=== PATIENT | female | born 1985 | race Caucasian/White ===

== ENCOUNTER 2022-06-21 15:49 | Emergency (ER) | payer OTHER, SELFPAY ==
--- NOTE | ~2022-06-21 | US_ITS ---
EXAMINATION: US venous doppler [facility] DATE: 06/21/2022 16:24 INDICATION: Left lower limb pain and swelling. TECHNIQUE: Grayscale ultrasound images without and with compression and Doppler ultrasound images of the left lower extremity veins were obtained. COMPARISON: None. FINDINGS: The visualized portions of left common femoral vein, profunda (deep) femoral vein, femoral vein, popl iteal vein, peroneal veins, posterior tibial veins, and greater saphenous vein outflow are patent. IMPRESSION: 1. No deep venous thrombosis. Reviewed, dictated and finalized at location A. X DEVELOPER
[2022-06-21 15:55] VITALS: BP 138/96; PULSE 82; RESP 16; TEMP 36.4; O2SAT 97
--- NOTE | 2022-06-21 17:34 | ED.LOWEXIN ---
HPI - Extremity Injury (Lower) General Chief Complaint: Extremity Injury, Lower Stated Complaint: left leg injury Time Seen by Provider: 06/21/22 17:05 Source: patient Mode of arrival: ambulatory Limitations: no limitations History of Present Illness HPI Narrative: Patient is a 37 y/o female who presents to the ED with c/o left calf pain. Patient reports she was in a kickboxing class last night and jump roping when she felt and heard a pop in her left calf. She had pain and swelling afterwards. She has been able to ambulate today, but has pain with this. Pain worse with ROM of ankle, reproducing pain in her left calf. She denies significant ankle or knee pain. She only has been taking ibuprofen for relief. Denies numbness, tingling. Related Data Home Medications Medication Instructions Recorded Confirmed methotrexate sodium 15 mg tablet 15 mg PO WEEKLY 06/21/22 venlafaxine 37.5 mg 37.5 mg PO QPM 06/21/22 capsule,extended release 24 hr (Effexor XR) Allergies Allergy/AdvReac Type Severity Reaction Status Date / Time No Known Allergies Allergy Verified 06/21/22 17:04 Review of Systems Review of Systems: CONSTITUTIONAL: Denies fever, chills, or sweats. MUSCULOSKELETAL: See HPI. NEUROLOGIC: Denies tingling, numbness, or weakness. All systems reviewed & are unremarkable except as noted in HPI and below PMFSH Past Medical History Medical History No pertinent past medical history Surgical History Surgical History (Updated 06/21/22 @ 18:23 by Caroline Brewer PA-C) No pertinent past surgical history Social History Social History (Updated 06/21/22 @ 21:12 by Caroline Brewer PA-C) Smoking status: Never smoker Exam Narrative: GENERAL: Well appearing, obese, non-toxic, in no acute distress. HEAD: Normocephalic, atraumatic. NECK: Supple. No adenopathy, no masses. RESPIRATORY: Airway patent, respirations nonlabored. CARDIOVASCULAR: Regular rate and rhythm without murmurs, rubs, or gallops. Pedal pulses 2+ and equal bilaterally. MUSCULOSKELETAL: Limited plantar and dorsiflexion of left ankle due to pain in left calf. Moderate tenderness to palpation in left posterior upper calf. Diffuse taut swelling of left calf, though compartments still soft. Sensation intact. Good capillary refill. No ecchymosis. No significant tenderness or swelling along Achilles tendon, medial/lateral malleoli. SKIN: Warm, dry, normal color. No rashes. NEURO: A&O X3. Speech clear. Cranial nerves II-XII grossly intact. No ataxic movements. PSYCHIATRIC: Appropriate mood and affect. Normal interaction. Course Vital Signs Vital signs: Vital Signs Temperature 97.6 F 06/21/22 15:55 Pulse Rate 82 06/21/22 15:55 Respiratory Rate 16 06/21/22 15:55 Blood Pressure 138/96 H 06/21/22 15:55 Pulse Oximetry 97 06/21/22 15:55 Temperature 97.6 F 06/21/22 15:55 Pulse Rate 82 06/21/22 15:55 Respiratory Rate 16 06/21/22 15:55 Blood Pressure 138/96 H 06/21/22 15:55 Pulse Oximetry 97 06/21/22 15:55 MDM - Extremity Injury (Lower) MDM Narrative Medical decision making narrative: Patient's injury is consistent with musculoskeletal etiology. No signs of neurologic or vascular compromise on physical examination. Good pedal pulses. Patient w/ limited dorsiflexion d/t pain in posterior calf, no significant tenderness along lower calf, Achilles, heel, or foot, doubt Achilles rupture. Diffuse swelling to L upper calf, but compartments are soft without signs of compartment syndrome. Venous Doppler ultrasound negative for DVT. Pain is consistent with exam and injury. Discussed likelihood of gastrocnemius muscle or tendon strain. Patient is felt to be stable for discharge home and further outpatient management and treatment. Patient given Domingo bandage in the ED as well as crutches. Will provide orthopedic information for follow-up should
[2022-06-21] MEDS: NAPROXEN 250 MG TABLET 500 MG PO (18:19)
== END 2022-06-21 18:35 | disposition home or self-care (01) ==
PROVIDERS: Emergency Provider Physician Assistant
DX: S86.912A Strain of unspecified muscle(s) and tendon(s) at lower leg level, left leg, initial encounter (principal); X50.0XXA Overexertion from strenuous movement or load, initial encounter; Y93.75 Activity, martial arts
CPT/HCPCS: 93971; 99284; A9270

== ENCOUNTER 2023-03-29 17:06 | Emergency (ER) | payer OTHER, SELFPAY ==
--- NOTE | ~2023-03-29 | XR_ITS ---
EXAMINATION: XR chest 2V DATE: 03/29/2023 17:39 INDICATION: Chest pressure TECHNIQUE: Frontal and lateral views of the chest are obtained COMPARISON: 03/22/2022 FINDINGS: The lungs are free of acute opacities. No pleural effusion or pneumothorax. The cardiomedia stinal silhouette is normal. There is mild thoracic spondylosis. Surgical clips in the right upper qu adrant are likely from prior cholecystectomy. IMPRESSION: 1. No acute cardiopulmonary abnormality. Reviewed, dictated and finalized at location F.
--- NOTE | 2023-03-29 17:07 | ECG_ITS ---
Measurements Intervals [place] Rate: 73 P: 40 OK: 171 QRS: 3 QRSD: 95 T: 19 QT: 387 QTc: 428 Interpretive Statements SINUS RHYTHM LOW QRS VOLTAGE IN PRECORDIAL LEADS [QRS DEFLECTION < 1.0 mV IN CHEST LEADS] POSSIBLE ANTERIOR MYOCARDIAL INFARCTION , PROBABLY OLD [30 ms Q WAVE IN V3/V4, OR R < 0.2 mV IN V4] NO PREVIOUS ECG AVAILABLE FOR COMPARISON Electronically Signed On 03-29-2023 19:54:06 CDT by Tracey Landa M.D.
[2023-03-29 17:14] VITALS: BP 129/96; PULSE 74; RESP 16; TEMP 36.4; O2SAT 100
[2023-03-29 17:27] VITALS: BP 125/95; PULSE 81; RESP 15; O2SAT 100
[2023-03-29 17:31] VITALS: BP 116/91; PULSE 80; RESP 20; O2SAT 100
[2023-03-29 17:37] LABS: Basophils Absolute Auto 0.1 K/mm3 (0.0-0.1); Basophils Percent Auto 0.7 % (0.2-1.2); Eosinophils Absolute Auto 0.1 K/mm3 (0-0.3); Eosinophils Percent Auto 1.3 % (0-4.4); Hematocrit 45.3 % (37.0-47.0); Immature Granulocyte Absolute 0.02 K/mm3 (0.00-0.031); Immature Granulocyte Percent A 0.2 % (0-0.5); Lymphocytes Absolute Auto 1.71 K/mm3 (0.9-3.2); Lymphocytes Percent Auto 20.2 % (18.3-44.2); Mean Corpuscular HGB Conc 33.1 g/dl (32-36); Mean Corpuscular Hemoglobin 29.6 pg (26-34); Mean Corpuscular Volume 89.3 fl (80-100); Mean Platelet Volume 9.6 fl (7.4-10.4); Monocytes Absolute Auto 0.5 K/mm3 (0.1-0.6); Neutrophils Percent Auto 71.6 % (45.5-73.1); Platelet Count Result 441 k/mm3 (150-375); Red Blood Count 5.07 M/mm3 (4.2-5.4); Red Cell Distribution Width 13.5 % (11.5-14.5); White Blood Count 8.5 K/mm3 (4.5-10.0)
[2023-03-29 17:50] LABS: Partial Thromboplastin Time 26.9 SECONDS (22.3-36.8); Prothrombin Time 13.3 Seconds (11.1-14.7)
[2023-03-29 18:19] LABS: Alanine Aminotransferase 22 U/L (6-35); Albumin Level 4.2 g/dL (3.5-5.1); Alkaline Phosphatase 86 U/L (38-126); Anion Gap 7 mmol/L (8-16); Aspartate Amino Transferase 24 U/L (14-36); Bilirubin,Total 0.5 mg/dL (0.2-1.3); Blood Urea Nitrogen 13 mg/dL (7-17); Calcium 8.9 mg/dL (8.4-10.2); Carbon Dioxide 26 mmol/L (22-30); Chloride 101 mmol/L (98-107); Estimated CRCL calculation 91 ml/min; Estimated Glomerular Filt Rate > 60; Glucose 95 mg/dL (65-110); Lipase 80 U/L (23-300); Potassium 3.2 mmol/L (3.4-5.0); Sodium 134 mmol/L (137-145)
--- NOTE | 2023-03-29 18:19 | ED.CHESTPAIN ---
HPI - Chest Pain General Chief Complaint: Chest Pain <Tarah Tinoco PA-C - Last Filed: 03/29/23 21:50> Stated Complaint: chest pressure <Tarah Tinoco PA-C - Last Filed: 03/29/23 21:50> Time Seen by Provider: 03/29/23 18:05 <Tarah Tinoco PA-C - Last Filed: 03/29/23 21:50> History of Present Illness HPI narrative: 37-year-old female, LMP 03/20/2023, reports for evaluation for lightheadedness and chest discomfort that occurred approximately 1 hour prior to arrival. Patient states before the onset of symptoms, she was unloading her groceries and then went to sit on the couch. While she was in on the couch, she began feeling a fluttering and pressure in her anterior chest wall and began to feel lightheaded and dizzy. States she texted her boyfriend who is upstairs and came downstairs to check on her. At the time she took her vitals and her blood pressure was normal and heart rate was in the 60s. She then said that she could not catch her breath and felt panic with associated nausea. She her vitals and her blood pressure was 205/125 and heart rate was in the 30s. She began to feel diaphoretic and lightheaded. Her boyfriend then brought her to the ED. She states her symptoms lasted for approximately 15 minutes. She is is still having the chest fluttering and pressure. She does states she feels dizzy with position changes which is not abnormal for her. She reports drinking 2 cups of caffeine daily, no drug use. She drinks alcohol socially. She states she has had episodes of panic at night which coincides with similar symptoms, however she has not checked her vitals during these times. She has never been evaluated by windows systems admin, she has never worn a Holter monitor. Denies syncope but states she felt close to it prior to arrival. Denies lower extremity edema, calf pain, history of VTE, history of cancer, hemoptysis, cough or congestion, fever, vomiting or diarrhea, abdominal pain. <Tarah Tinoco PA-C - Last Filed: 03/29/23 21:50> Related Data Home Medications: Home Medications Medication Instructions Recorded Confirmed bupropion HCl 300 mg 24 hr tablet, 300 mg PO QAM 04/06/23 04/06/23 extended release (Wellbutrin XL) <Tarah Tinoco PA-C - Last Filed: 03/29/23 21:50> Allergies/Adverse Reactions: Allergies Allergy/AdvReac Type Severity Reaction Status Date / Time No Known Allergies Allergy Verified 04/06/23 10:15 <Tarah Tinoco PA-C - Last Filed: 03/29/23 21:50> Review of Systems Review of Systems: CONSTITUTIONAL: Denies fever, chills EYES: Denies visual changes, redness, or discharge. ENT: Denies rhinorrhea, congestion, sore throat, or otalgia. CARDIOVASCULAR: See HPI RESPIRATORY: See HPI GASTROINTESTINAL: Denies abdominal pain, nausea, vomiting, or diarrhea. GENITOURINARY: Denies dysuria or hematuria. SKIN: Denies rash or itching. MUSCULOSKELETAL: Denies back pain, joint pain, or myalgia. NEUROLOGIC: See HPI PSYCHIATRIC: See HPI <Tarah Tinoco PA-C - Last Filed: 03/29/23 21:50> [facility] Past Medical History Medical History: Medical History No pertinent past medical history <Tarah Tinoco PA-C - Last Filed: 03/29/23 21:50> Surgical History Surgical History: Surgical History No pertinent past surgical history <Tarah Tinoco PA-C - Last Filed: 03/29/23 21:50> Social History Social History: Social History Smoking status: Never smoker <JESUS Dominguez Last Filed: 03/29/23 21:50> Exam Narrative: GENERAL: Well-appearing, in no acute distress. Patient resting comfortably in exam bed. She is pleasant and conversational. HEAD: Normocephalic EYES: PERRLA, EOMI ENT: Nares clear. Mucous membranes moist. Oropharynx without ton
[2023-03-29 18:30] VITALS: BP 124/90; PULSE 80; RESP 20; O2SAT 98
[2023-03-29 18:31] LABS: Troponin I < 0.012 ng/mL (0.000-0.034)
[2023-03-29] MEDS: ASPIRIN 81 MG CHEWABLE TABLET 324 MG PO (18:35)
[2023-03-29] MEDS: SODIUM CHLORIDE 0.9% IV 1,000 ML 999 ML IV CONT (18:36)
[2023-03-29] MEDS: POTASSIUM CHLORIDE 20 MEQ PACKET (FOR LIQUID) PO (18:36)
[2023-03-29 18:38] LABS: Magnesium 1.7 mg/dL (1.6-2.3)
[2023-03-29 18:43] LABS: Appearance Urine Clear (Clear); Bacteria Urine None Seen /hpf; Bilirubin Urine 1+ (Negative); Blood Urine Negative (Negative); Color Urine Dark Yellow (Yellow); Glucose Urine UA Negative (Negative); Ketones Urine Negative (Negative); Leukocyte Esterase Ur Trace LEU/UL (Negative); Nitrate Urine Negative (Negative); Non Pathogenic Casts 0-2; Protein Urine Negative (Negative); RBC Urine 0-2 /hpf (0-2); Specific Grav Ur 1.014 (1.001-1.035); Squamous Epithelial Cell Urine None seen /hpf (Few)
[2023-03-29 18:46] LABS: D Dimer 0.31 ug/mL (<0.48)
[2023-03-29 18:59] LABS: NT Pro B Type Natriuretic Pept 101 pg/mL (19.9-100)
[2023-03-29 19:20] LABS: Add Urine Microscopic? YES
[2023-03-29 19:29] VITALS: BP 123/89; PULSE 81; RESP 15; O2SAT 96
[2023-03-29] MEDS: MECLIZINE HCL 25 MG TABLET PO (20:13)
[2023-03-29 21:27] LABS: Troponin I < 0.012 ng/mL (0.000-0.034)
[2023-03-29] MEDS: CEPHALEXIN 500 MG CAPSULE PO (21:48)
[2023-03-29 21:51] VITALS: BP 120/92; PULSE 82; RESP 20; O2SAT 100
== END 2023-03-29 22:04 | disposition home or self-care (01) ==
PROVIDERS: Emergency Medicine; Emergency Provider Physician Assistant
DX: R42 Dizziness and giddiness (principal); R82.90 Unspecified abnormal findings in urine; R07.89 Other chest pain; R06.02 Shortness of breath
CPT/HCPCS: 36415; 71046; 80053; 81001; 81025; 83690; 83735; 83880; 84484; 85025; 85380; 85610; 85730; 87086; 93005; 96360; 96361; 99284; A9270; J7030

== ENCOUNTER 2023-04-10 08:45 | Outpatient (CLI) | payer OTHER, SELFPAY ==
--- NOTE | 2023-04-10 09:05 | ECHO_ITS ---
Patient Info Name: Kely Curry Age: 37 years : 1985 Gender: Female Ht: 64 in Wt: 199 lbs BSA: 2.06 m2 HR: 94 bpm BP: 134 / 102 mmHg Heart Rhythm: Sinus Rhythm Technical Quality: Fair Exam Date: 04/10/2023 9:08 AM Exam Location: Echo Lab Patient Status: Outpatient Admit Date: 04/10/2023 Staff Ordering Physician: Michel Mathis DO Health Insurance Sales Agent: Marietta Price RDCS Attending Provider: Stone Pichardo MD Referring Physician: Del JACOME; Exam Type: CA echo doppler color flow Study Info Indications R00.2 - Palpitations Complete two-dimensional, color flow and Doppler transthoracic echocardiogram is performed. Summary 1. Complete two-dimensional, color flow and Doppler transthoracic echocardiogram is performed. 2. Left ventricular chamber dimension is normal. 3. Left ventricular systolic function is normal, estimated at 60-65%. 4. The left ventricular diastolic function is grade I diastolic dysfunction. 5. E/e' 4 is not elevated. 6. No pulmonary hypertension, estimated pulmonary arterial systolic pressure is 23 mmHg. Left Ventricle E/e' 4 is not elevated. Left ventricular chamber dimension is normal. Left ventricular systolic function is normal, estimated at 60-65%. The left ventricular diastolic function is grade I diastolic dysfunction. Right Ventricle Right ventricular systolic function is normal and with normal TAPSE 2.2 cm. Right ventricular chamber dimension is normal. Left Atria Left atrial chamber dimension is normal. Right Atria Right atrial chamber dimension is normal. Aortic Valve The aortic valve is trileaflet. There is no aortic valve stenosis. There is no aortic valve regurgitation. Pulmonic Valve There is no pulmonic regurgitation. Mitral Valve There is no mitral valve stenosis. There is no mitral valve regurgitation. Tricuspid Valve There is no tricuspid valve regurgitation. No pulmonary hypertension, estimated pulmonary arterial systolic pressure is 23 mmHg. Pericardium/Pleural There is no pericardial effusion. Inferior Vena Cava Normal inferior vena cava with >50% collapse upon inspiration consistent with normal right atrial pressure, 5 mmHg. Aorta The aortic root size at the sinus of Valsalva is normal. Left Ventricular Outflow Tract Name Value Normal LVOT 2D LVOT Diameter 2.0 cm LVOT Doppler LVOT Peak Gradient 4 mmHg LVOT Mean Gradient 2 mmHg LVOT VTI 15 cm LVOT VTI/AV VTI Ratio 0.6 LVOT Stroke Volume 45 ml LVOT CO 4.3 l/min LVOT CI 2.1 l/min/m2 Pulmonic Valve Name Value Normal RVOT Doppler RVOT Peak Gradient 2 mmHg PV Doppler PV Peak Gradient 5 mmHg
== END 2023-04-10 08:46 | disposition home or self-care (01) ==
LOC: ANHCARD 08:46
PROVIDERS: PCP Family Medicine; Visit Provider Family Medicine
DX: R55 Syncope and collapse (principal); R00.2 Palpitations; H43.393 Other vitreous opacities, bilateral; I10 Essential (primary) hypertension; R93.1 Abnormal findings on diagnostic imaging of heart and coronary circulation
CPT/HCPCS: 93306

== ENCOUNTER 2023-04-11 14:50 | Outpatient (CLI) | payer OTHER, SELFPAY ==
--- NOTE | ~2023-04-11 | US_ITS ---
EXAMINATION: US carotid duplex BI DATE: 04/11/2023 15:36 INDICATION: Syncope TECHNIQUE: Grayscale, color Doppler, and pulsed Doppler images of the cervical carotid arteries were obtained. The degree of vessel stenosis is placed in one of the following categories: normal, <50%, 5 0-69%, >=70% but less than near-occlusion, near-occlusion, or total occlusion. Note that percent sten osis relative to normal distal artery lumen diameter is indirectly measured from velocity measurement s as described by Rodrigue, et al. Radiology 2003; 229:340-346. COMPARISON: None. FINDINGS: RIGHT: The right common carotid artery (CCA) peak systolic velocity (PSV) is 91 cm/s. The right internal car otid artery (ICA) PSV is 56 cm/s. The right ICA end-diastolic velocity (EDV) is 32 cm/s. The right IC A/CCA PSV ratio is 0.6. Grayscale and color Doppler images demonstrate no appreciable plaque or steno sis in the ICA. The external carotid artery (ECA) PSV is 90 cm/s. There is antegrade flow in the righ t vertebral artery. LEFT: The left CCA PSV is 60 cm/s. The left ICA PSV is 61 cm/s. The left ICA EDV is 34 cm/s. The left ICA/C CA PSV ratio is 1.0. Grayscale and color Doppler images demonstrate no appreciable plaque or stenosis in the ICA. The ECA PSV is 92 cm/s. There is antegrade flow in the left vertebral artery. IMPRESSION: 1. Normal right internal carotid artery. 2. Normal left internal carotid artery. Reviewed, dictated and finalized at location A. SAFETY AUDITOR
== END 2023-04-11 14:51 | disposition home or self-care (01) ==
PROVIDERS: PCP Family Medicine; Visit Provider Nurse Practitioner Adult Health
DX: R55 Syncope and collapse (principal); R00.2 Palpitations; I10 Essential (primary) hypertension; H43.393 Other vitreous opacities, bilateral
CPT/HCPCS: 93880

== ENCOUNTER 2023-06-01 09:21 | Outpatient (CLI) | payer OTHER, SELFPAY ==
--- NOTE | 2023-06-14 14:41 | WPDHOMESLEEP ---
Sleep Study - Home Unattended Date of Study: 06/01/23 Ordering Provider: Michel Mathis DO Interpreting Provider: Stefany Bishop MD Home Sleep Study Type: Watch PAT Height: 1.63 m Weight: 89.811 kg Body Mass Index: 34.0 Neck Circumference (inches): 14.5 [place]: 10 Reason for Sleep Study Hypersomnolence Sleep History Kely Curry is a 38-year-old woman with hypersomnolence. She did not complete a sleep questionnaire, so details about her sleep are not known. [facility] Past Medical History Medical History No pertinent past medical history Surgical History Surgical History No pertinent past surgical history Social History Social History Smoking status: Never smoker Medications Home Medications Medication Instructions Recorded Confirmed Type bupropion HCl 300 mg 24 hr tablet, 300 mg PO QAM 04/06/23 05/23/23 History extended release (Wellbutrin XL) CAROLYN 100 mg-theanine 100 cap PO 05/23/23 05/23/23 History mg-ashwagandha extract 225 mg capsule (CAROLYN Soothe) atomoxetine 100 mg capsule 100 mg PO DAILY 05/23/23 05/23/23 History (Strattera) multivitamin with iron (Daily 1 tablet PO DAILY 05/23/23 05/23/23 History Multiple Vitamins with Iron tablet) propranolol 10 mg tablet 10 mg PO Q12H 05/23/23 05/23/23 History Sleep Procedure The sleep study was completed using WatchPAT a technically adequate device with seven channels: peripheral arterial tone, actigraphy, body position, snore, respiratory movement, pulse oximetry, sleep staging, and heart rate. Prior to using the device, the patient received verbal and written instructions for its application and was provided with the help desk phone number for additional telephonic instruction with 24-hour availability of qualified personnel to answer questions. Sleep Architecture The total recording time is 8 hours 39 minutes. The total sleep time is 7 hours 9 minutes. Sleep latency is 16 minutes. REM latency is 66 minutes. The patient had 11 episodes of waking. Sleep efficiency is 85%. Sleep architecture shows 17% deep sleep, 57% light sleep, and 24% stage REM. The patient spent 215.3 minutes, 49% of total sleep time in the supine position. Respiratory Analysis The overall AHI is 2.2. The central AHI is 0. The REM AHI was 3.5. There was no evidence of Johnson-Wing respirations. Oximetry Data The oxygen desaturation index is 2.2. The mean saturation is 94%, the lowest saturation is 87%, and the patient spent no time below 88% saturation. Snoring Profile Snoring was present, average intensity 40 dB. The patient snored above 45 dB for 3.5 minutes, 0.8% of the sleep time. Cardiac Profile The average pulse is 75 beats per minute, the lowest pulse is 51 beats per minute, and the highest pulse is 102 beats per minute. No arrhythmias noted. Assessment and Plan Assessment and Plan (1) Hypersomnia: Code(s): G47.10 - Hypersomnia, unspecified Status: Acute Assessment and Plan: This home sleep test using WatchPat on 06/01/2023 does not show sleep disordered breathing. The apnea-hypopnea index is 2.2 with a minimum saturation of 87% and mild snoring. It is unlikely that she has sleep-disordered breathing. She may have other sleep conditions that are not measured on home sleep tests such as excessive leg movements. Recommendations are limited as no sleep questionnaire was available to review. Clinical correlation is recommended. Data The data obtained during this sleep study is adequate for interpretation. Certification This sleep study has been reviewed by a board certified sleep medicine physician.
[2023-06-15 15:55] VITALS: BMI 34.0
== END 2023-06-05 07:00 | disposition home or self-care (01) ==
PROVIDERS: PCP Family Medicine; Visit Provider Internal Medicine Cardiovascular Disease
DX: G47.10 Hypersomnia, unspecified (principal)
CPT/HCPCS: 95800

== ENCOUNTER 2023-09-10 07:59 | Outpatient (CLI) | payer OTHER, SELFPAY ==
[2023-09-10 08:37] LABS: Basophils Absolute Auto 0.1 K/mm3 (0.0-0.1); Eosinophils Absolute Auto 0.1 K/mm3 (0-0.3); Eosinophils Percent Auto 2.3 % (0-4.4); Hematocrit 44.3 % (37.0-47.0); Hemoglobin 14.8 g/dL (12.0-15.0); Immature Granulocyte Absolute 0.01 K/mm3 (0.00-0.031); Immature Granulocyte Percent A 0.2 % (0-0.5); Lymphocytes Absolute Auto 1.69 K/mm3 (0.9-3.2); Lymphocytes Percent Auto 29.3 % (18.3-44.2); Mean Corpuscular HGB Conc 33.4 g/dl (32-36); Mean Corpuscular Hemoglobin 29.9 pg (26-34); Mean Corpuscular Volume 89.5 fl (80-100); Mean Platelet Volume 9.3 fl (7.4-10.4); Monocytes Absolute Auto 0.5 K/mm3 (0.1-0.6); Neutrophils Absolute Auto 3.4 K/mm3 (1.3-6.7); Neutrophils Percent Auto 58.2 % (45.5-73.1); Platelet Count Result 371 k/mm3 (150-375); Red Blood Count 4.95 M/mm3 (4.2-5.4); Red Cell Distribution Width 13.6 % (11.5-14.5); White Blood Count 5.8 K/mm3 (4.5-10.0)
[2023-09-10 08:49] LABS: Cholesterol 195 mg/dL (0-200); HDL Direct 37 mg/dL; Triglycerides 132 mg/dL (<150)
[2023-09-10 08:51] LABS: Rheumatoid Factor < 12.0 IU/ML (<12)
[2023-09-10 08:59] LABS: Alanine Aminotransferase 20 U/L (6-35); Albumin Level 4.3 g/dL (3.5-5.1); Alkaline Phosphatase 71 U/L (38-126); Anion Gap 3 mmol/L (4-12); Aspartate Amino Transferase 23 U/L (14-36); Bilirubin,Total 0.7 mg/dL (0.2-1.3); Blood Urea Nitrogen 12 mg/dL (7-17); CRP 0.6 mg/dL (<1.0); Calcium 9.9 mg/dL (8.4-10.2); Carbon Dioxide 30 mmol/L (22-30); Chloride 103 mmol/L (98-107); Estimated Glomerular Filt Rate > 60; Glucose 79 mg/dL (65-110); Potassium 4.2 mmol/L (3.4-5.0); Sodium 136 mmol/L (137-145)
[2023-09-10 09:00] LABS: LDL Cholesterol Direct 125 mg/dL
[2023-09-10 09:18] LABS: Total Triiodothyronine (T3) 1.07 NG/ML (0.97-1.69)
[2023-09-10 09:50] LABS: Hepatitis B Surface Antigen Negative (Negative)
[2023-09-10 10:07] LABS: Hepatitis B Surface Antibody > 1000.00 s/c; Hepatitis C Virus Antibody Negative (Negative)
[2023-09-10 10:28] LABS: Hepatitis B Surface Anti Res Positive
[2023-09-10 11:02] LABS: Erythrocyte Sedimentation Rate 21 mm/hr (0-20)
[2023-09-12 14:48] LABS: NIL 0.04 IU/mL; Quantiferon TB Plus, 1T NEGATIVE (NEGATIVE); TB1-NIL 0.04 IU/mL; TB2-NIL 0.02 IU/mL
[2023-09-13 20:30] LABS: Anti Cyclic Citrullinated Pept <16 Units (<20)
== END 2023-09-10 08:00 | disposition home or self-care (01) ==
PROVIDERS: Registered Nurse; PCP Family Medicine; Visit Provider Internal Medicine
DX: M06.9 Rheumatoid arthritis, unspecified (principal); I10 Essential (primary) hypertension; E78.5 Hyperlipidemia, unspecified; R53.83 Other fatigue; F32.A Depression, unspecified
CPT/HCPCS: 36415; 80053; 80061; 84439; 84443; 84480; 85025; 85652; 86140; 86200; 86430; 86480; 86706; 86803; 87340

== ENCOUNTER 2024-11-06 10:46 | Outpatient (CLI) | payer OTHER, SELFPAY ==
[2024-11-06 11:19] LABS: Basophils Percent Auto 0.8 % (0.2-1.2); Eosinophils Absolute Auto 0.1 K/mm3 (0-0.3); Eosinophils Percent Auto 1.8 % (0-4.4); Hematocrit 44.7 % (37.0-47.0); Hemoglobin 14.6 g/dL (12.0-15.0); Immature Granulocyte Absolute 0.01 K/mm3 (0.00-0.031); Immature Granulocyte Percent A 0.2 % (0-0.5); Lymphocytes Absolute Auto 1.52 K/mm3 (0.9-3.2); Mean Corpuscular HGB Conc 32.7 g/dl (32-36); Mean Corpuscular Volume 91.8 fl (80-100); Mean Platelet Volume 9.4 fl (7.4-10.4); Monocytes Absolute Auto 0.5 K/mm3 (0.1-0.6); Monocytes Percent Auto 9.7 % (2.6-8.5); Neutrophils Absolute Auto 2.9 K/mm3 (1.3-6.7); Neutrophils Percent Auto 57.5 % (45.5-73.1); Platelet Count Result 360 k/mm3 (150-375); Red Blood Count 4.87 M/mm3 (4.2-5.4); Red Cell Distribution Width 13.1 % (11.5-14.5); White Blood Count 5.1 K/mm3 (4.5-10.0)
--- OUTSIDE RECORDS SUMMARY | 2024-11-06 11:48 | XMS_ITS | Clinical Summary ---
Author Organization [facility] Address [address] [place] [address] Care Team Providers Care Electrician'S Assistant Name Role Phone Tyrone Bautista MD Unavailable [phone] Stone Pichardo MD Primary Care Provider [phone] Source Comments [facility],non-owned Affiliates and Associated Physician Practices is amultiple site organization consisting of ambulatory clinics and hospital sitesin [place], [place], [place] and [place]. This disclosure is being madepursuant to the Care Everywhere program and may not contain all information available regarding this patient. Last updated 18.[facility] Allergies Active Allergy Reactions Criticality Noted Date Comments Lactose Diarrhea,GI Discomfo rt,Headache,Nausea and/or Vomiting 03/21/2022 Medications * Be aware that medications may not be up to date on this document. Alwaysverify current medications with the patient. multivitamin daily (THERAGRAN) tablet Take 1 (one) tablet by mouth daily with food Active omeprazole (PriLOSEC) 20 MG capsule Take 1 (one) capsule by mouth once daily 2 Active buPROPion SR 12hr (Wellbutrin SR) 200 MG tablet Take 1 (one) tablet by mouth 2 times daily 4 Active propranolol (Inderal) 10 MG tablet Take 1 (one) tablet by mouth as needed 4 Active lurasidone (Latuda) 20 MG tablet Take 1 (one) tablet by mouth 4 Active lisinopril (Prinivil; Zestril) 20 MG tablet Take 1 (one) tablet by mouth once daily 4 Active lisdexamfetamin e (Vyvanse) 10 MG capsule Take 1 (one) capsule by mouth 4 Active hydroxychloroqu ine (Plaquenil) 200 MG tabletIndicatio ns:Seronegative rheumatoid arthritis Take 1 (one) tablet by mouth 2 times daily Reasons: Seronegative rheumatoid arthritis 60 tablet 9 5 Active Active Problems Patient Care Coordination No te Formatting of this note migh t be different from the original. Hip pain Problem Noted Date Diagnosed Date Seronegative rheumatoid arthritis 04/08/2024 Assessment & Plan (04/08/2024 4:39 PM MAPPING ENGINEER): Kely's history of seronegative RA is the most likely cause for her current joint pain and stiffness. The high fevers in 2016 would be more consistent with adult- onset Still disease, but she does not have indications that this is the cause of current symptoms. She previously responded well to adalimumab but prefers to pursue a treatment with less immunosuppressive risk. - Start hydroxychloroquine 200 mg PO bid - Reassess in two months - If no response, can discuss escalating to adalimumab. Trochanteric bursitis of both hips 04/08/2024 Assessment & Plan (04/08/2024 4:40 PM MAPPING ENGINEER): Not esteemed to be infectious based on symptoms. Clinical references and helpful information/videos shared with patient via [employer]. Dysmenorrhea 06/24/2018 Menorrhagia with regular cycle 06/24/2018 Generalized anxiety disorder 06/24/2018 Migraine with aura and witho ut status migrainosus, not intractable 06/24/2018 Overview (06/24/2018): Started again 01/2018, 2/month, with lightheadedness, nausea, photo/phono/motion sensitivity. Some relief with Excedrin headache. Right sided. Blurry vision before onset of headache. 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 (AF LURIA, FLUZONE TRIVALENT; 6MO+) (IIV3) 03/15/2020,03/11/2019,04/04/2018,2016,03/04/2016 DTAP, HISTORIC VACCINE 2018 FLU VACCINE TRI IIV3 SPLIT I M (FLUVIRIN) 04/01/2014 INFLUENZA VACCINE, QUADR. (F LUZONE; FLULAVAL; FLUARIX; AFLURIA QUADRIVALENT; 6MO+), 0.5 ML (IIV4) 04/04/2021 TDAP (7yrs+) 2018,09/03/2015 Family History Medical History Relation Name Comments Liver Disease Maternal Grandfather alchol ic Liver Disease Maternal Grandmother alchol ic Hypertension Mother Lymphoma Paternal Grandfather Relation Name Status Comments Brother 1 Alive Brother 2 Alive Father Alive Maternal Grandfather Maternal Grandmother Mother Alive Paternal Grandfather Paternal Grandmother Social History Tobacco Use Types Packs/Day Years Used Date Smoking Tobacco: Never Smokeless Tobacco: Never Tobacco Cessation:Counseling Given: Not Answered Alcohol Use Standard Drinks/Week Comments Yes 2 (1 standard drink = 0.6 oz pur e alcohol) occasional PHQ-2 Answer Date Recorded Patient Health Questionnaire-2 Score 2 06/25/2024 Comments No Sex and Gender Information Value Date Recorded Sex Assigned at Female 03/10/2024 2:28 PM CDT Legal Sex Female 6:54 AM MAPPING ENGINEER Gender Identity Female 03/10/2024 2:28 PM CDT Sexual Orientation Straight 03/10/2024 2: 28 PM CDT 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 Not on file Not on file Not on file Last Filed Vital Signs Vital Sign Reading Time Taken Comments Blood Pressure 120/80 06/25/2024 3:13 PM MAPPING ENGINEER Pulse 86 06/25/2024 3:13 PM MAPPING ENGINEER Temperature 36.1 C (97 F) 06/25/2024 3:13 PM MAPPING ENGINEER Respiratory Rate 16 06/25/2024 3:13 PM MAPPING ENGINEER Oxygen Saturation 92% 06/25/2024 3:13 PM MAPPING ENGINEER Inhaled Oxygen Concentration - - Weight 95.7 kg (211 lb) 06/25/2024 3:13 PM MAPPING ENGINEER Height 162.6 cm (5' 4) 04/08/2024 2:51 PM MAPPING ENGINEER Body Mass Index 36.22 04/08/2024 2:51 PM MAPPING ENGINEER Plan of Treatment Health Maintenance Due Date Last Done Comments MAMMOGRAM 1984 HEPATITIS B VACCINE (1 of 3 - 19+ 3-dose series) 2003 LIPID TESTING 01/20/2021 01/21/2016, 01/21/2016 PAP with HPV 05/09/2022 05/09/2017, 05/09/2017 COVID-19 VACCINE ( season) 2024 01/28/2021, 01/08/2021 INFLUENZA VACCINE (Season Ended) 2025 04/04/2021, 03/15/2020, 03/11/2019, Additional history exists SCREENING FOR DIABETES 04/17/2026 , 11/22/2022, 07/31/2022, Additional history exists DTAP/TDAP/TD VACCINES (4 - Td or Tdap) 2028 2018, 2018, 09/03/2015 ZOSTER VACCINE (1 of 2) 2034 HIV SCREENING Completed 05/09/2017, 03/17/2016 HEPATITIS C SCREENING Completed 03/21/2022 , 05/09/2017, 03/17/2016 DEPRESSION SCREENING Completed 06/25/2024 HIB VACCINE Aged Out No longer eligi ble based on patient's age to complete this topic HPV VACCINE Aged Out No longer eligi ble based on patient's age to complete this topic MENINGOCOCCAL (Group B) VACCINE SHARED DECISION-MAKING Aged Out No longer eligible based on patient's age to complete this topic MENINGOCOCCAL GROUPS A/C/Y/W VACCINE Aged Out No longer eligible based on patient's age to complete this topic PNEUMOCOCCAL VACCINE Aged Out No long er eligible based on patient's age to complete this topic Procedures Procedure Name Priority Date/Time Associated Diagnosis Comments COMPREHENSIVE METABOLIC PANEL Routine 04/17/2023 3:04 PM MAPPING ENGINEER Rheumatoid arthritis of multiple sites without rheumatoid factor Polyarthralgia Vitamin D deficiency Elevated sed rate Elevated C-reactive protein (CRP) High risk medication use Immunosuppressed status Ds DNA antibody positive HEPATITIS SCREEN ACUTE Routine 2 3:19 PM CDT Polyarthralgia Vitamin D deficiency Elevated sed rate Elevated C-reactive protein (CRP) HIV-1 HIV-2 ANTIGEN/ANTIBODY W RFLX Routine 05/09/2017 3:18 PM MAPPING ENGINEER Screen for STD (sexually transmitted disease) PAP IG LB+HPV DNA HR+LR Routine 05/09/2017 2:58 PM MAPPING ENGINEER Screen for STD (sexually transmitted disease) LIPID PROFILE REFLEX LDL DIRECT Routine 01/21/2016 10:50 AM CDT Screening for lipoid disorders from Last 3 Months or Most Recently Relevant to Health Maintenance Results * COMPREHENSIVE METABOLIC PANEL (04/17/2023 3:04 PM MAPPING ENGINEER) Glucose 79 70 - 99 mg/dL [facility] ACCOUNT BILL BUN 15 6 - 20 mg/dL [facility] ACCOUNT BILL Creatinine 0.82 0.57 - 1.00 mg/dL [facility] ACCOUNT BILL eGFR by CKD-EPI 93 >59 mL/min/1.7 3 [facility] ACCOUNT BILL BUN/Creatinine Ratio 18 9 - 23 [facility] ACCOUNT BILL Sodium 141 134 - 144 mmol/L [facility] ACCOUNT BILL Potassium 4.3 3.5 - 5.2 mmol/L [facility] ACCOUNT BILL Chloride 104 96 - 106 mmol/L [facility] ACCOUNT BILL CO2 27 20 - 29 mmol/L [facility] ACCOUNT BILL Calcium 9.6 8.7 - 10.2 mg/dL [facility] ACCOUNT BILL Protein Total 7.0 6.0 - 8.5 g/dL [facility] ACCOUNT BILL Albumin 4.1 3.9 - 4.9 g/dL [facility] ACCOUNT BILL Globulin Total 2.9 1.5 - 4.5 g/dL [facility] ACCOUNT BILL Albumin/Globulin Ratio 1.4 1.2 - 2.2 [facility] ACCOUNT BILL Bilirubin Total <0.2 0.0 - 1.2 mg/dL [facility] ACCOUNT BILL Alkaline Phosphatase 95 44 - 121 IU/L [facility] ACCOUNT BILL AST 17 0 - 40 IU/L [facility] ACCOUNT BILL ALT 15 0 - 32 IU/L [facility] ACCOUNT BILL Blood BLOOD SPECIMEN / Unknown 04/17/2023 3:04 PM MAPPING ENGINEER 04/17/2023 Narrative Resulting Agency Comment Lab Testing performed at: [facility] [address] [facility] [id number] [place] Aria Galicia MD LAB - CHEMISTRY ORDERABLES June l Result [facility] ACCOUNT BILL [address] [place] [address] * HEPATITIS SCREEN ACUTE (03/21/2022 3:19 PM CDT) Hepatitis A Virus Antibody IgM NON-REACTI VE NON-REACT [facility] Comment: For additional information, please refer to http://education.[employer]bidu.com.br/faq/RDU409 (This link is being provided for informational/ educational purposes only.) Hepatitis B Virus Surface Antigen NON-REACTI VE NON-REACT [facility] [facility] Hepatitis B Core Virus Antibody IgM NON-REACTI VE NON-REACT [facility] Hepatitis C Antibody NON-REACTI VE NON-REACT [facility] [facility] Signal to Cut-Off 0.01 <1.00 [facility] Comment: HCV antibody was non-reactive. There is no laboratory evidence of HCV infection. In most cases, no further action is required. However, if recent HCV exposure is suspected, a test for HCV RNA (test code 81521) is suggested. For additional information please refer to http://education.[employer]/faq/OOK06n3 (This link is being provided for informational/ educational purposes only.) Test Performed at: [place] [address] [facility] [place] [address] KRYSTA WALSH DO,MPH Blood BLOOD SPECIMEN / Unknown 03/21/2022 3:19 PM CDT 03/21/2022 3:19 PM CDT us Aria Galicia MD LAB - CHEMISTRY ORDERABLES June l Result [facility] [address] [place] [address] * HIV-1 HIV-2 ANTIGEN/ANTIBODY W RFLX (05/09/2017 3:18 PM MAPPING ENGINEER) HIV Screen 4th Generation w Reflex Non Reactive Non Reactive [facility] INSURANCE BILL Blood BLOOD SPECIMEN / Unknown 05/09/2017 3:18 PM MAPPING ENGINEER 05/09/2017 Narrative Resulting Agency Comment [facility] [place] [address] [facility] [id number] us Candido Li MD LAB - SEROLOGY ORDERABLES Fi nal Result Performing Organization Address City/[facility]/ZIP Co de Phone Number [facility] INSURANCE BILL [address] [place] [address] * PAP IG LB+HPV DNA HR+LR (05/09/2017 2:58 PM MAPPING ENGINEER) Diagnosis [facility] ACCOUNT BILL Comment:NEGATIVE FOR INTRAEP ITHELIAL LESION AND MALIGNANCY. Specimen Adequacy [facility] ACCOUNT BILL Comment: Satisfactory for evaluation. Endocervical and/or squamous metaplastic cells (endocervical component) are present. Clinician Provided ICD10 [facility] ACCOUNT BILL Comment: Z72.51 Z11.3 F41.1 Performed by [facility] ACCOUNT BILL Comment:Candice Benitez Cytot echnologist (ASCP) Comment . [facility] ACCOUNT BILL Note [facility] ACCOUNT BILL Comment: The Pap smear is a screening test designed to aid in the detection of premalignant and malignant conditions of the uterine cervix. It is not a diagnostic procedure and should not be used as the sole means of detecting cervical cancer. Both false-positive and false-negative reports do occur. . IGLBP CPT Code Automation [facility] ACCOUNT BILL Comment: This liquid based ThinPrep(R) pap test was screened with the use of an image guided system. Human papillomavirus High Risk Negative Negative [facility] ACCOUNT BILL Human papillomavirus Low Risk Negative Negative [facility] ACCOUNT BILL Comment: These HPV tests detect thirteen high-risk types (16/18/31/33/35/ 39/45/51/52/56/58/59/68) and five low-risk types (6/11/42/43/44) without differentiation. . PART OF UTERINE CERVIX / Unknown 05/09/2017 2:58 PM MAPPING ENGINEER 05/09/2017 Narrative [facility] ACCOUNT BILL - 05/11/2017 5:10 PM MAPPING ENGINEER Source.............Cervix LMP / Prev Treat...None No. of containers..01 ThinPrep Vial Resulting Agency Comment [facility] [address] [place] [id number] Candido Li MD LAB - PATHOLOGY/CYTOLOGY ORD ERABLES Final Result [facility] ACCOUNT BILL [address] [place] [address] * (ABNORMAL) LIPID PROFILE REFLEX LDL DIRECT (PO REF LAB) (01/21/2016 10:50 AM CDT) Cholesterol 207(H) 100 - 199 mg/dL [facility] ACCOUNT BILL Triglycerides 94 0 - 149 mg/dL [facility] ACCOUNT BILL HDL Cholesterol 48 >39 mg/dL [facility] ACCOUNT BILL Comment: According to ATP-III Guidelines, HDL-C >59 mg/dL is considered a negative risk factor for CHD. VLDL Calculated 19 5 - 40 mg/dL [facility] ACCOUNT BILL LDL Calculated 140(H) 0 - 99 mg/dL [facility] ACCOUNT BILL Comment NOT NEEDED [facility] ACCOUNT BILL Comment:Ancillary determined the test is not needed Cholesterol/HDL Ratio 4.3 0.0 - 4.4 ratio units [facility] ACCOUNT BILL Comment: T. Chol/HDL Ratio Men Women 1/2 Avg.Risk 3.4 3.3 Avg.Risk 5.0 4.4 2X Avg.Risk 9.6 7.1 3X Avg.Risk 23.4 11.0 LDL/HDL Ratio 2.9 0.0 - 3.2 ratio units [facility] ACCOUNT BILL Comment: LDL/HDL Ratio Men Women 1/2 Avg.Risk 1.0 1.5 Avg.Risk 3.6 3.2 2X Avg.Risk 6.2 5.0 3X Avg.Risk 8.0 6.1 Blood specimen (specimen) BLOOD SPECIMEN / Unknown 01/21/2016 10:50 AM CDT 01/21/2016 1:02 PM CDT Narrative Resulting Agency Comment [facility] [place] [id number] [facility] [id number] Candido Li MD LAB - CHEMISTRY ORDERABLES F inal Result [facility] ACCOUNT BILL [address] [place] [address] from Last 3 Months or Most Recently Relevant to Health Maintenance Advance Directives * Full Code (Latest Code Status on File) Date Activated Date Inactivated Comments 03/30/2016 2:15 PM 04/03/2016 3:22 PM * Full Code Date Activated Date Inactivated Comments 03/22/2016 1:43 PM 03/25/2016 3:39 PM * Full Code Date Activated Date Inactivated Comments 03/17/2016 9:46 PM 03/20/2016 2:51 PM Care Teams Electrician'S Assistant Relationship Specialty Start Date End Date Stone Pichardo MD [address] [place] [phone] PCP - General Family Medicine 04/08/24 Tyrone Bautista MD [address] [place] [phone] Rheumatology 06/24/18
--- OUTSIDE RECORDS SUMMARY | 2024-11-06 11:48 | XMS_ITS | Encounter Summary ---
Author Organization [facility] Address [address] [place] [address] Care Team Providers Care Regulator Pin Inserter Name Role Phone Candido Li MD Primary Care Provider [phone] Tyrone Bautista MD Unavailable [phone] Gillian Anderson [employer] [facility] Primary Care Provider Stone Pichardo MD Primary Care Provider [phone] Encounter Details Date Type Department Care Team (Late st Contact Info) Description 11/25/2021 Lab Requisition [facility] [address] [place] [phone] Jesse Rees, [employer] [facility] [address] [address] Contact with and (suspected) exposure to other viral communicable diseases Social History Tobacco Use Types Packs/Day Years Used Date Smoking Tobacco: Never Smokeless Tobacco: Never Alcohol Use Standard Drinks/Week Comments Yes 2 (1 standard drink = 0.6 oz pur e alcohol) occasional Comments No Sex and Gender Information Value Date Recorded Sex Assigned at Female 03/10/2024 2:28 PM CDT Legal Sex Female 6:54 AM LOCKSTITCH CUP SETTER Gender Identity Female 03/10/2024 2:28 PM CDT Sexual Orientation Straight 03/10/2024 2: 28 PM CDT 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 Answer Date of Assessment Author No 03/30/2016 5:23 PM CDT Jessica Cruz RN * Is person blind or have serious difficulty seeing? Answer Date of Assessment Author No 03/30/2016 5:23 PM CDT Jessica Cruz RN * Does person have serious difficulty walking/climbing stairs? Answer Date of Assessment Author No 03/30/2016 5:23 PM CDT Jessica Cruz RN * Does person have difficulty dressing/bathing? Answer Date of Assessment Author No 03/30/2016 5:23 PM CDT Jessica Cruz RN * Does person have difficulty doing errands alone? Answer Date of Assessment Author No 03/30/2016 5:23 PM CDT Jessica Cruz RN documented as of this encounter Mental Status * Does person have difficulty concentrating/remembering/making decisions? Answer Entry Date Author No 03/30/2016 5:23 PM CDT Jessica Cruz RN documented in this encounter Plan of Treatment Not on file documented as of this encounter Procedures Procedure Name Priority Date/Time Associated Diagnosis Comments SARS-COV-2 (COVID-19) IN HOUSE Routine 11/25/2021 12:30 PM CDT Contact with and (suspected) exposure to other viral communicable diseases documented in this encounter Results * SARS-COV-2 (COVID-19) INTERNAL (11/25/2021 12:30 PM CDT) COVID-19 PCR Not detected Not detected 11/26/2021 4:44 AM CDT [facility] Microbiology SPECIMEN FROM NASOPHARYNGEAL STRUCTURE / Unknown Collection / Unknown 11/25/2021 12:30 PM CDT 11/25/2021 4:10 PM CDT Narrative [facility] - 11/26/2021 4:44 AM CDT This Real Time RT-PCR assay was developed and its performance characteristics determined by [facility]. This test has been authorized by the Food and Drug administration (FDA)under an Emergency Use Authorization (EUA). This test has been validated in accordance with the FDA's guidance document Policy for Diagnostic Testing in Laboratories Certified to perform High Complexity Testing under CLIA prior to Emergency Use Authorization for Coronavirus Disease-2019 during the Public Health Emergency issued on August 02, 2019. FDA independent review of this validation is pending. This test is only authorized for the duration of time the declaration that circumstances exist justifying the authorization of emergency use of in vitro diagnostic tests for detection of SARS-CoV-2 virus and/or diagnosis of COVID-19 infection under section 564(b)(1) of the Act, 21 U.S.C 360bbb-3 (b)(1), unless the authorization is terminated or revoked sooner. Fact Sheets for this EUA assay are available upon request. [facility] MICROBIOLOGY PRECIOUS CLOUD Final Result [facility] [address] [phone] documented in this encounter Visit Diagnoses Diagnosis Contact with and (suspected) exposure to other viral communicable diseases documented in this encounter Additional Health Concerns Infection Onset Date Last Indicated Resolved Time COVID-19 Under Investigation 11/25/2021 11/25/2021 11/26/2021 4:44 AM CDT documented as of this encounter Care Teams Regulator Pin Inserter Relationship Specialty Start Date End Date Candido Li MD PCP - General Family Medicine 01/21/16 12/08/21 Gillian Anderson APRN-CNP [address] [place] [phone] PCP - General Nurse Practitioner 12/09/21 04/07/24 Stone Pichardo MD [address] [place] [phone] PCP - General Family Medicine 04/08/24 Tyrone Bautista MD [address] [phone] Rheumatology 06/24/18 documented as of this encounter
--- OUTSIDE RECORDS SUMMARY | 2024-11-06 11:48 | XMS_ITS | Encounter Summary ---
Author Organization [facility] Address [address] [place] [address] Care Team Providers Care Architect Internship Name Role Phone Unavailable Primary Care Provider Unavailabl e Candido Li MD Primary Care Provider [phone] Tyrone Bautista MD Unavailable [phone] Gillian [facility] Primary Care Provider Stone Pichardo MD Primary Care Provider [phone] Candido Li MD Unavailable [phone] Encounter Details Date Type Department Care Team (Late st Contact Info) Description 11/09/2015 Lab Requisition [facility] [address] [place] [id number] Unknown, Provider Social History Tobacco Use Types Packs/Day Years Used Date Smoking Tobacco: Never Alcohol Use Standard Drinks/Week Comments Yes 0 (1 standard drink = 0.6 oz pur e alcohol) occasional Comments Unknown Sex and Gender Information Value Date Recorded Sex Assigned at Female 03/10/2024 2:28 PM CDT Legal Sex Female 6:54 AM CLINICAL PATHOLOGIST Gender Identity Female 03/10/2024 2:28 PM CDT Sexual Orientation Straight 03/10/2024 2: 28 PM CDT documented as of this encounter Plan of Treatment Not on file documented as of this encounter Procedures Procedure Name Priority Date/Time Associated Diagnosis Comments RUBEOLA ANTIBODY IGG Routine 11/09/2015 1:20 PM CDT MUMPS ANTIBODY IGG Routine 11/09/2015 1: 20 PM CDT VARICELLA ZOSTER ANTIBODY IGG Routine 11/09/2015 1:20 PM CDT RUBELLA ANTIBODY IGG Routine 11/09/2015 1:20 PM CDT HEPATITIS B SURFACE ANTIBODY Routine 11/09/2015 1:20 PM CDT documented in this encounter Results * VARICELLA ZOSTER ANTIBODY IGG (11/09/2015 1:20 PM CDT) Pathologist [facility] [place] Varicella zoster Virus Antibody IgG 1160 Immune >165 index 11/11/2015 1:15 PM CDT [facility] ([facility]) Comment: Negative <135 Equivocal 135 - 165 Positive >165 A positive result generally indicates exposure to the pathogen or administration of specific immunoglobulins, but it is not indication of active infection or stage of disease. Blood specimen (specimen) BLOOD SPECIMEN / Unknown Venipuncture / Unknown 11/09/2015 1:20 PM CDT 11/09/2015 7:08 PM CDT Narrative [facility] ([facility]) - 11/11/2015 1:15 PM CDT Performed at: [address] [place] [address] [place] [id number] Baggage Agent Supervisor: Damir Dinero PhD, Phone: [phone] us Provider Unknown LAB - CHEMISTRY ORDERABLES June l Result [facility] ([facility]) [address] [place] [address] * RUBEOLA ANTIBODY IGG (11/09/2015 1:20 PM CDT) Measles (Rubeola) Antibody IgG 149.0 Immune >29.9 AU/mL 11/11/2015 1:15 PM CDT [facility] ([facility]) Comment: Negative <25.0 Equivocal 25.0 - 29.9 Positive >29.9 Presence of antibodies to Rubeola is presumptive evidence of immunity except when acute infection is suspected. Blood specimen (specimen) BLOOD SPECIMEN / Unknown Venipuncture / Unknown 11/09/2015 1:20 PM CDT 11/09/2015 7:08 PM CDT Narrative [facility] ([facility]) - 11/11/2015 1:15 PM CDT Performed at: [address] [place] [id number] Baggage Agent Supervisor: Damir Dinero PhD, Phone: [phone] Provider Unknown LAB - CHEMISTRY ORDERABLES June l Result Performing Organization Address [facility] Co de Phone Number [facility] ([facility]) [address] [place] [address] * MUMPS ANTIBODY IGG (11/09/2015 1:20 PM CDT) [facility] Mumps Virus Antibody IgG Index >300.0 Immune >10.9 AU/mL 11/11/2015 1:15 PM CDT [facility] ([facility]) Comment: Negative <9.0 Equivocal 9.0 - 10.9 Positive >10.9 A positive result generally indicates past exposure to Mumps virus or previous vaccination. Blood specimen (specimen) BLOOD SPECIMEN / Unknown Venipuncture / Unknown 11/09/2015 1:20 PM CDT 11/09/2015 7:08 PM CDT [facility]ative [facility] - 11/11/2015 1:15 PM CDT Performed at: [address] [place] [id number] Baggage Agent Supervisor: Damir Dinero PhD, Phone: [phone] Provider Unknown LAB - CHEMISTRY ORDERABLES June l Result Performing Organization Address [facility] de Phone Number [facility] ([facility]) [address] [place] [address] * RUBELLA ANTIBODY IGG (11/09/2015 1:20 PM CDT) Rubella Antibody IgG Positive - Immune 11/09/2015 8:25 PM CDT [facility] Blood BLOOD SPECIMEN / Unknown Venipuncture / Unknown 11/09/2015 1:20 PM CDT 11/09/2015 7:08 PM CDT Provider Unknown LAB - SEROLOGY ORDERABLES Final Result Performing Organization Address [facility] Co de Phone Number [facility] [address] [place] [phone] * (ABNORMAL) HEPATITIS B SURFACE ANTIBODY (11/09/2015 1:20 PM CDT) HBsAb REACTIVE(A ) Non Reactive 11/09/2015 8:10 PM CDT [facility] Blood BLOOD SPECIMEN / Unknown Venipuncture / Unknown 11/09/2015 1:20 PM CDT 11/09/2015 7:08 PM CDT us Provider Unknown LAB - CHEMISTRY ORDERABLES June l Result Performing Organization Address [facility] Co de Phone Number [facility] [address] [place] [address] documented in this encounter Visit Diagnoses Not on filedocumented in this encounter Additional Health Concerns Infection Onset Date Last Indicated Resolved Time COVID-19 Under Investigation 11/25/2021 11/25/2021 11/26/2021 4:44 AM CDT documented as of this encounter Care Teams Architect Internship Relationship Specialty Start Date End Date PCP - General 04/10/09 01/20/16 Candido Li MD PCP - General Family Medicine 01/21/16 12/08/21 Gillian Anderson, [employer] LENDING TRADER [address] [place] [phone] PCP - General Nurse Practitioner 12/09/21 04/07/24 Stone Pichardo MD [address] [place] [address] PCP - General Family Medicine 04/08/24 [place] [address] [facility] [address] [place] [address] PCP - Attributed-Exclusive Choice 11/17/16 06/06/18 Tyrone Bautista MD [address] [facility] [address] [place] [id number] Rheumatology 06/24/18 documented as of this encounter
--- OUTSIDE RECORDS SUMMARY | 2024-11-06 11:48 | XMS_ITS | Referral Summary ---
Author Organization [facility] at the [facility] Address [address] [place] [address] Care Team Providers Care Healthcare Economics Consultant Name Role Phone Stone Pichardo MD Primary Care Provider [phone] Social History Tobacco Use Types Packs/Day Years Used Date Smoking Tobacco: Never Assessed Comments No Sex and Gender Information Value Date Recorded Sex Assigned at Not on file Legal Sex Female 6:04 PM CASTING ASSISTANT Gender Identity Not on file Sexual Orientation Not on file Last Filed Vital Signs Vital Sign Reading Time Taken Comments Blood Pressure 139/91 05/22/2019 12:07 PM CASTING ASSISTANT Pulse 76 05/22/2019 12:07 PM CASTING ASSISTANT Temperature 36.7 C (98 F) 05/22/2019 12:07 PM CASTING ASSISTANT Respiratory Rate - - Oxygen Saturation 96% 05/22/2019 12:07 PM CASTING ASSISTANT Inhaled Oxygen Concentration - - Weight 97.7 kg (215 lb 6.3 oz) 05/22/2019 12:07 PM CASTING ASSISTANT Height 162.6 cm (5' 4) 05/22/2019 12:07 PM CASTING ASSISTANT Body Mass Index 36.97 05/22/2019 12:07 PM CASTING ASSISTANT Plan of Treatment Not on file Procedures Procedure Name Priority Date/Time Associated Diagnosis Comments SCREENING MAMMOGRAM BILATERAL W AMANDEEP Schedule Routine, Read Routine (OP Routine) 07/10/2024 3:33 PM CASTING ASSISTANT Screening mammogram, encounter for from Last 3 Months or Most Recently Relevant to Health Maintenance Results * Screening Mammogram Bilateral W Amandeep (07/10/2024 3:33 PM CASTING ASSISTANT) Anatomical Region Laterality Modality Breast Bilateral Mammography Impressions 07/10/2024 3:42 PM CASTING ASSISTANT BI-RADS ATLAS category (overall): 2 - Benign There is no mammographic evidence of malignancy. A 1 year screening mammogram is recommended. The patient has been or will be contacted. We recommend annual screening mammography for women at average risk of breast cancer beginning at age 40, based on guidelines of the [place] [employer] (ACR Practice Parameter for the Performance of Screening and Diagnostic Mammography) and [place] [employer]. For women with and elevated risk of breast cancer, please refer to the ACR Practice Parameter for specific screening recommendations. The patient will be entered into a reminder system with a target due date of 1 year for her next screening exam. Narrative 07/10/2024 3:42 PM CASTING ASSISTANT Screening Mammogram Bilateral W Amandeep: 07/10/24 The study was acquired using full field digital technology and interpreted from soft copy. 2D digital mammographic views, as well as 3D digital tomosynthesis were performed in the CC and MLO projections. This study was resulted using Computer-Aided Detection (CAD). CLINICAL: Screening mammogram, encounter for. No relevant medical history has been documented for this patient. No known family history of breast cancer. COMPARISON: Baseline Screening Mammography. No prior mammography is available for comparison. BREAST TISSUE: There are scattered areas of fibroglandular density. FINDINGS: There are multiple small benign appearing circumscribed masses in both breasts, favored to represent intramammary lymph nodes, cysts, and/or other benign entities. No suspicious masses, suspicious calcifications, or other suspicious findings are seen within either breast. us Self Screening Mammogram IMG MAMMO PROCEDURES Fi nal Result from Last 3 Months or Most Recently Relevant to Health Maintenance Insurance [facility] CHOICE PLUS Care Teams Healthcare Economics Consultant Relationship Specialty Start Date End Date Stone Pichardo MD [address] [address] PCP - General Family Medicine 07/08/24
--- OUTSIDE RECORDS SUMMARY | 2024-11-06 11:48 | XMS_ITS | Clinical Summary ---
Author Organization [facility] Address [address] [place] [address] Phone Care Team Providers Care Coke Burner Name Role Phone Mateo Salinas MD Primary Care Provider [phone] Allergies Active Allergy Reactions Criticality Noted Date Comments Lactose Abdominal Pain,Diarrhea,Headache Low 05/2015 Medications ferrous gluconate (FERATE) 256 mg (28 mg iron) Tablet Take 256 mg by mouth. Active ibuprofen (MOTRIN) 600 mg tablet 9 Active ALPRAZolam (XANAX) 0.25 mg tabletIndicatio ns:Adjustment disorder with anxiety Take 1 Tablet (0.25 mg) by mouth 3 times daily as needed for Anxiety. 30 Tablet 2 2 Active etonogestrel-Et hinyl Estradiol 0.12-0.015 mg/24 hr Ring Insert 1 Device vaginally every 28 days. 2 Active lisinopriL (PRINIVIL) 10 mg tabletIndicatio ns:HTN (hypertension), benign Take 1 Tablet (10 mg) by mouth daily. 90 Tablet 3 2 Active omeprazole (PriLOSEC) 20 mg Capsule, Delayed Release(E.C.)In dications:Abnor mal computed tomography angiography (CTA) Take 1 Capsule (20 mg) by mouth daily. 30 Capsule 11 2 Active OLANZapine (ZyPREXA) 5 mg tablet TAKE 1 TABLET BY MOUTH EVERYDAY AT BEDTIME 30 Tablet 2 Active adalimumab (HUMIRA) 40 mg/0.8 mL Syringe Kit Inject by subcutaneous injection every 2 weeks. Active buPROPion HCL (Wellbutrin XL) 300 mg Extended Release 24 hour tablet Take 1 Tablet (300 mg) by mouth daily in the morning. 30 Tablet 11 3 Active propranoloL (INDERAL) 10 mg tabletIndicatio ns:HTN (hypertension), benign,Anxiety state,Palpitati ons Take 1 Tablet (10 mg) by mouth 2 times daily. 60 Tablet 2 3 Active atomoxetine (STRATTERA) 80 mg capsule take 1 capsule by mouth every day 100 Capsule 3 4 Active propranoloL (INDERAL) 10 mg tabletIndicatio ns:HTN (hypertension), benign,Anxiety state,Palpitati ons TAKE 1 TABLET BY MOUTH TWICE A DAY 180 Tablet 1 4 Active Active Problems Patient Care Coordination No te Formatting of this note migh t be different from the original. 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 Brain fog 02/21/2021 Bipolar disorder 02/21/2021 Attention deficit hyperactiv ity disorder (ADHD), combined type 01/20/2021 Fatigue 01/20/2021 DDD (degenerative disc disease), lumbosacral Immunization reaction 01/20/2021 HTN (hypertension), benign 01/20/2021 Elevated erythrocyte sedimentation rate 12/16/19 21 Immunizations Immunization Administration Dates Next Due (NOWBOX)(12 YR UP) COVID-19 VACCINE - EMERGENCY USE AUTHORIZATION, MRNA, [id number](PF) 30 MCG/0.3 ML IM SUSP 01/28/2021,01/08/2021 Influenza Seasonal Unspecifi ed Formulation IM 03/23/2021,04/04/2020,03/15/2020,2018,04/04/2018,04/25/2017,03/04/2016 Family History Medical History Relation Name Comments Hypertension Father Healthy Mother Relation Name Status Comments Father Alive Mother Alive Social History Tobacco Use Types Packs/Day Years Used Date Smoking Tobacco: Never Smokeless Tobacco: Never Alcohol Use Standard Drinks/Week Comments Yes 12 (1 standard drink = 0.6 oz pu re alcohol) socially Comments No Sex and Gender Information Value Date Recorded Sex Assigned at Female 03/29/2023 4:18 PM CDT Legal Sex Female 5:58 AM MANAGER PRESENTATION Gender Identity Female 03/29/2023 4:18 PM CDT Sexual Orientation Straight 03/29/2023 4: 18 PM CDT Last Filed Vital Signs Vital Sign Reading Time Taken Comments Blood Pressure 130/84 11/06/2022 2:55 PM CDT Pulse 90 11/06/2022 2:55 PM CDT Temperature 36.3 C (97.4 F) 11/06/2022 2:55 PM CDT Respiratory Rate 20 01/02/2022 11:38 AM CDT Oxygen Saturation 97% 11/06/2022 2:55 PM CDT Inhaled Oxygen Concentration - - Weight 98.2 kg (216 lb 6.4 oz) 11/06/2022 2:55 P M CDT Height 162.6 cm (5' 4) 11/06/2022 2:55 PM CDT Body Mass Index 37.14 11/06/2022 2:55 PM CDT Plan of Treatment Health Maintenance Due Date Last Done Comments HEPATITIS B VACCINES (1 of 3 - 19+ 3-dose series) 2003 HPV/Cotest (21-29) 2005 HPV/Cotest (30-65) 2014 INFLUENZA VACCINE (#1) 2024 , 03/23/2021, 04/04/2020, Additional history exists COVID-19 Vaccine (3 - 2023- season) 2024 01/28/2021, 01/08/2021 BREAST CANCER SCREENING 2024 Preventative Visit- Commercial 06/04/2024 11/06/2022, 01/02/2022, 12/09/2021, Additional history exists CERVICAL CANCER SCREENING 12/09/2024 PAP SMEAR 12/09/2024 12/09/2021 DTAP/TDAP/TD VACCINES (3 - Td or Tdap) 2028 2018, 07/26/2015 (Previously completed) HPV VACCINES Aged Out No longer eligi ble based on patient's age to complete this topic Insurance [employer] [facility] [id number] Care Teams Coke Burner Relationship Specialty Start Date End Date Mateo Salinas MD PCP - General Internal Medicine 11/12/20
--- OUTSIDE RECORDS SUMMARY | 2024-11-06 11:48 | XMS_ITS | Encounter Summary ---
Author Organization [facility] Address [address] [place] [address] Care Team Providers Care Water Treatment Plant Operator Name Role Phone Vianney Silva DO Primary Care Provider [phone] Jesse Narayan MD Primary Care Provider [phone] Stone Pichardo MD Primary Care Provider [phone] Encounter Details Date Type Department Care Team (Late st Contact Info) Description 09/17/2019 Telephone [facility] Occupatiuonal Health [address] [place] [address] Room 3420 (Third Floor) [place] [address] Asmita Mckee RN Social History Tobacco Use Types Packs/Day Years Used Date Smoking Tobacco: Never Assessed Comments Unknown Sex and Gender Information Value Date Recorded Sex Assigned at Not on file Legal Sex Female 6:04 PM BUSINESS CONTINUITY COORDINATOR Gender Identity Not on file Sexual Orientation Not on file documented as of this encounter Plan of Treatment Not on file documented as of this encounter Visit Diagnoses Not on filedocumented in this encounter Additional Health Concerns Infection Onset Date Last Indicated Resolved Time COVID: Suspected 09/19/2019 09/19/2019 09/20/2019 10:57 PM CDT Respiratory Infection (ALBER), contact + droplet Comment:Automatically added due to negative COVID-19 result. 09/20/2019 09/20/2019 10/04/2019 3:0 5 AM CDT COVID: Suspected 01/12/2020 01/13/2020 01/14/2020 1:26 AM CDT COVID19 01/13/2020 01/13/2020 01/27/2020 3:07 AM CDT COVID: Recovered Comment:Added based on recent COVID infection. 01/27/2020 04/27/2020 05/26/2020 3:[address] documented as of this encounter Care Teams Water Treatment Plant Operator Relationship Specialty Start Date End Date Vianney Silva DO [address] [address] PCP - General 05/22/19 12/18/19 Jesse Narayan MD [address] [address] PCP - General Family Medicine 12/19/19 07/07/24 Stone Pichardo MD [address] [address] PCP - General Family Medicine 07/08/24 documented as of this encounter
--- OUTSIDE RECORDS SUMMARY | 2024-11-06 11:48 | XMS_ITS | Clinical Summary ---
Author Organization [facility] Address [address] [place] [address] Care Team Providers Care Sales Rep Name Role Phone Stone Pichardo MD Primary Care Provider [phone] Social History Tobacco Use Types Packs/Day Years Used Date Smoking Tobacco: Never Assessed Comments No Sex and Gender Information Value Date Recorded Sex Assigned at Not on file Legal Sex Female 6:04 PM STAFF COMMAND AND CONTROL OFFICER Gender Identity Not on file Sexual Orientation Not on file Obstetrics History Para Term AB IAB SAB Ectopic Multiple Livin g Live Births 2 Date Outcome GA Total Labor Labor/2nd/3rd Weight Sex Type Anes PTL Vidya A1 A5 Name Clin Last Filed Vital Signs Vital Sign Reading Time Taken Comments Blood Pressure 139/91 05/22/2019 12:07 PM STAFF COMMAND AND CONTROL OFFICER Pulse 76 05/22/2019 12:07 PM STAFF COMMAND AND CONTROL OFFICER Temperature 36.7 C (98 F) 05/22/2019 12:07 PM STAFF COMMAND AND CONTROL OFFICER Respiratory Rate - - Oxygen Saturation 96% 05/22/2019 12:07 PM STAFF COMMAND AND CONTROL OFFICER Inhaled Oxygen Concentration - - Weight 97.7 kg (215 lb 6.3 oz) 05/22/2019 12:07 PM STAFF COMMAND AND CONTROL OFFICER Height 162.6 cm (5' 4) 05/22/2019 12:07 PM STAFF COMMAND AND CONTROL OFFICER Body Mass Index 36.97 05/22/2019 12:07 PM STAFF COMMAND AND CONTROL OFFICER Plan of Treatment Health Maintenance Due Date Last Done Comments Cervical Cancer Screening 1984 Depression Screening 1984 Hepatitis C Screening 1984 Varicella Vaccines (1 of 2 - 13+ 2-dose series) 1997 Hepatitis B Screening 2002 Regular Well Visit/Exam 18-64 2002 Covid-19 Vaccine ( - season) 2024 01/28/2021, 01/08/2021 Influenza Vaccine (Season Ended) 2025 04/04/2021, 03/23/2021, 04/04/2020, Additional history exists Breast Cancer Screening-Mammogram 07/10/2025 07/10/2024 DTaP/Tdap/Td Vaccine (4 - Td or Tdap) 2028 2018, 2018, 09/03/2015 HPV Vaccines Aged Out No longer eligi ble based on patient's age to complete this topic Pneumococcal vaccine <65 Aged Out No longer eligible based on patient's age to complete this topic Procedures Procedure Name Priority Date/Time Associated Diagnosis Comments SCREENING MAMMOGRAM BILATERAL W AMANDEEP Schedule Routine, Read Routine (OP Routine) 07/10/2024 3:33 PM STAFF COMMAND AND CONTROL OFFICER Screening mammogram, encounter for from Last 3 Months or Most Recently Relevant to Health Maintenance Results * Screening Mammogram Bilateral W Amandeep (07/10/2024 3:33 PM STAFF COMMAND AND CONTROL OFFICER) Anatomical Region Laterality Modality Breast Bilateral Mammography Impressions 07/10/2024 3:42 PM STAFF COMMAND AND CONTROL OFFICER BI-RADS ATLAS category (overall): 2 - Benign There is no mammographic evidence of malignancy. A 1 year screening mammogram is recommended. The patient has been or will be contacted. We recommend annual screening mammography for women at average risk of breast cancer beginning at age 40, based on guidelines of the [place] [employer] (ACR Practice Parameter for the Performance of Screening and Diagnostic Mammography) and [place] [employer]. For women with and elevated risk of breast cancer, please refer to the ACR Practice Parameter for specific screening recommendations. The patient will be entered into a reminder system with a target due date of 1 year for her next screening exam. Narrative 07/10/2024 3:42 PM STAFF COMMAND AND CONTROL OFFICER Screening Mammogram Bilateral W Amandeep: 07/10/24 The [...] Most Recently Relevant to Health Maintenance Insurance [facility] CHOICE PLUS Care Teams Sales Rep Relationship Specialty Start Date End Date tSone Pichardo MD [address] [place], [place] [id number] PCP - General Family Medicine 07/08/24
--- OUTSIDE RECORDS SUMMARY | 2024-11-06 11:48 | XMS_ITS | Encounter Summary ---
Author Organization [facility] Address [address] [place] [address] Care Team Providers [employer] Associate Name Role Phone Tyrone Bautista MD Unavailable [phone] Stone Pichardo MD Primary Care Provider [phone] Encounter Details Date Type Department Care Team (Late st Contact Info) Description 07/15/2024 Lab Requisition [facility] DermPath Lab [address] [facility], [place] [phone] Emilia Ramsey MD [address] [facility] [address] [place] [address] Social History Tobacco Use Types Packs/Day Years [...] PM CDT 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 Answer Date of Assessment Author No 03/30/2016 5:23 PM Jessica Waite RN * Is person blind or have serious difficulty seeing? Answer Date of Assessment Author No 03/30/2016 5:23 PM [place] Jessica Cruz RN * Does person have serious difficulty walking/climbing stairs? Answer Date of Assessment Author No 03/30/2016 5:23 PM CDT Jessica Cruz RN * Does person have difficulty dressing/bathing? Answer Date of Assessment Author No 03/30/2016 5:23 PM [place] Jessica Cruz RN * Does person have difficulty doing errands alone? Answer Date of Assessment Author No 03/30/2016 5:23 PM Jessica Waite RN documented as of this encounter Mental Status * Does person have difficulty concentrating/remembering/making decisions? Answer Entry Date Author No 03/30/2016 5:23 PM Jessica Waite RN documented in this encounter Plan of Treatment Not on file documented as of this encounter Procedures Procedure Name Priority Date/Time Associated Diagnosis Comments DERMATOPATHOLOGY Routine 07/15/2024 2:59 PM OIL PIPE INSPECTOR HELPER documented in this encounter Results * DERMATOPATHOLOGY (07/15/2024 2:59 PM OIL PIPE INSPECTOR HELPER) Case Report Dermatopathology Report Case: [id number] Authorizing Provider: Emilia Ramsey MD Collected: 07/15/2024 02:59 PM Ordering Location: [facility] - Received: 07/16/2024 02:29 PM DermPath Lab Pathologist: Kiana Green MD Specimens: A) - Skin, right post auricular B) - Skin, left anterior thigh 1:05 PM [employer]IL PIPE INSPECTOR HELPER DERMATOPATHOLOGY LABORATORY Final Diagnosis Specimen A. SKIN, right post auricular: SEBORRHEIC KERATOSIS, INFLAMED (L82.0) Specimen B. SKIN, left anterior thigh: 'TONEY' ANGIOMA (D18.01) 1:05 PM OIL PIPE INSPECTOR HELPER DERMATOPATHOLOGY LABORATORY at 1305 [employer] PIPE INSPECTOR HELPER Clinical History A: R/O IDN Irritated B: R/O Angioma Irritated 1:05 PM [facility] DERMATOPATHOLOGY LABORATORY Gross Description Specimen A: Received is one formalin filled container labeled with the patient's name and designated right post auricular. The specimen consists of a shave biopsy measuring 91w08p7 mm. Jar 0. Specimen B: Received is one formalin filled container labeled with the patient's name and designated left anterior thigh. The specimen consists of a shave biopsy measuring 8x7x2 mm. Jar 0. 1:05 PM [facility] DERMATOPATHOLOGY LABORATORY Microscopic Description Specimen A. SKIN, right post auricular: There is hyperkeratosis, parakeratosis, papillomatosis, and acanthosis of the epidermis. There is a lymphohistiocytic infiltrate within the papillary dermis that is focally lichenoid. Specimen B. SKIN, left anterior thigh: In the dermis, there are dilated vascular spaces surrounded by thin, widely spaced endothelial cells. 1:05 PM [facility] DERMATOPATHOLOGY LABORATORY Disclaimer An external and internal positive and negative controls are appropriate for the histochemical, immunohistochemical and immunofluorescence stain(s) in this case (if any), except where stated explicitly. The performance characteristics of the stain(s) cited in this report were developed and its performance characteristic determined by the Dermatopathology Laboratory at [facility], directed by Dr. Juan Luis Troy. These tests need not be, and therefore are not, approved by the [place] Food and Drug Administration. The tests are used for clinical purposes. Billing Codes Specimen Charges Stain Charges 24909 98346 1 1 1:05 PM [facility] DERMATOPATHOLOGY [facility]ORATORY Embedded Images 1:05 PM [facility] DERMATOPATHOLOGY LABORATORY Pathology/Cytology TISSUE SPECIMEN FROM SKIN / Unknown 07/15/2024 2:59 PM OIL PIPE INSPECTOR HELPER 07/16/2024 2:29 PM OIL PIPE INSPECTOR HELPER Miscellaneous samples (specimen) TISSUE SPECIMEN FROM SKIN / Unknown 07/15/2024 2:59 PM OIL PIPE INSPECTOR HELPER 07/16/2024 2:29 PM OIL PIPE INSPECTOR HELPER Emilia Ramsey MD LAB - PATHOLOGY/CYTOLOGY OR DERABLES Final Result DERMATOPATHOLOGY LABORATORY [facility] - Department of Dermatology [facility] Specialized Medicine [address] [facility] [phone] documented in this encounter Visit Diagnoses Not on filedocumented in this encounter Care Teams Sales Solutions Associate Relationship Specialty Start Date End Date Stone Pichardo MD [address] [place] [phone] PCP - General Family Medicine 04/08/24 Tyrone Bautista MD [address] [phone] Rheumatology 06/24/18 documented as of this encounter
[2024-11-06 11:58] LABS: Anion Gap 8 mmol/L (4-12); Beta HCG Quantitative < 2.39 mIU/ML; Blood Urea Nitrogen 11 mg/dL (7-17); Calcium 9.5 mg/dL (8.4-10.2); Carbon Dioxide 27 mmol/L (22-30); Chloride 104 mmol/L (98-107); Estimated Glomerular Filt Rate > 60; Glucose 79 mg/dL (65-110); Potassium 4.1 mmol/L (3.4-5.0); Sodium 139 mmol/L (137-145)
== END 2024-11-06 10:47 | disposition home or self-care (01) ==
LOC: ANHLAB 10:49
PROVIDERS: PCP Family Medicine; Visit Provider Registered Nurse
DX: Z01.812 Encounter for preprocedural laboratory examination (principal)
CPT/HCPCS: 36415; 80048; 84702; 85025